=== PATIENT | male | born 2000 | race Two or more races ===

== ENCOUNTER 2020-06-27 23:30 | Observation (INO) | payer BC, OTHER ==
[2020-06-28 00:13] LABS: CHLORIDE,CL 105 mmol/L (98-107); SODIUM,NA 139 mmol/L (136-145)
--- NOTE | 2020-06-28 00:18 | EDM.PDOC ---
ED HPI GENERAL MEDICAL PROBLEM - General Chief Complaint: Cardiovascular Problem Stated Complaint: "racing heart" Time Seen by Provider: 06/28/20 00:04 Source of Information: Reports: Patient History Limitations: Reports: No Limitations - History of Present Illness INITIAL COMMENTS - FREE TEXT/NARRATIVE: Patient comes to ER with complaint of racing heart/more rapid pulse that started two days ago. Has Apple Watch which told him that his heart rate remained above 100 and went up to 120 for several hours yesterday while he was sitting inactive on the couch. Mild lightheadedness and mild breathlessness accompanies episodes. Today he only feels short episodes lasting 5-10 sec. Feels like flutter in chest. Activity/talking seems to bring it on. No history of arrhythmias/similar symptoms in past. Quit smoking several weeks ago. Otherwise no lifestyle changes. Denies any significant use of ETOH. Denies much caffeine use/no drug use. No recent illnesses. No supplements. No other complaints. - Related Data Allergies Allergy/AdvReac Type Severity Reaction Status Date / Time No Known Allergies Allergy Verified 06/27/20 23:31 Home Meds: Home Meds . [No Known Home Meds] 06/27/20 [History] Past Medical History Psychiatric History: Reports: ADHD Social & Family History - Tobacco Use Smoking Status *Q: Former Smoker Used Tobacco, but Quit: Yes Month/Year Tobacco Last Used: 2019 Second Hand Smoke Exposure: No - Caffeine Use Caffeine Use: Reports: Coffee - Alcohol Use Alcohol Use History: Yes Alcohol Use Frequency: Rarely - Recreational Drug Use Recreational Drug Use: No ED ROS GENERAL - Review of Systems Review Of Systems: See Below Constitutional: Reports: No Symptoms HEENT: Reports: No Symptoms Respiratory: Reports: Shortness of Breath Cardiovascular: Reports: Palpitations GI/Abdominal: Reports: No Symptoms : Reports: No Symptoms Musculoskeletal: Reports: No Symptoms Skin: Reports: No Symptoms Neurological: Reports: No Symptoms Psychiatric: Reports: No Symptoms Hematologic/Lymphatic: Reports: No Symptoms ED EXAM, GENERAL - Physical Exam Exam: See Below Exam Limited By: No Limitations General Appearance: Alert, WD/WN, No Apparent Distress Eye Exam: Bilateral Eye: EOMI, PERRL Ears: Normal External Exam, Hearing Grossly Normal Nose: No: Nasal Deformity, Nasal Swelling, Nasal Drainage Throat/Mouth: Normal Lips, Normal Voice, No Airway Compromise Head: Atraumatic, Normocephalic Neck: Normal Inspection, Supple, Non-Tender, Full Range of Motion Respiratory/Chest: No Respiratory Distress, Lungs Clear, Normal Breath Sounds, No Accessory Muscle Use Cardiovascular: Regular Rate, Rhythm, No Murmur GI/Abdominal: Soft, Non-Tender (Male) Exam: Deferred Rectal (Males) Exam: Deferred Extremities: Normal Inspection Neurological: Alert, Oriented, CN II-XII Intact, Normal Cognition, Normal Gait, No Motor/Sensory Deficits Psychiatric: Normal Affect, Normal Mood Skin Exam: Warm, Dry, Intact, Normal Color EKG INTERPRETATION EKG Date: 06/28/20 Time: 00:12 Rhythm: NSR Rate (Beats/Min): 65 [place]: Normal P-Wave: Present QRS: Normal ST-T: Normal QT: Normal Course - Vital Signs Last Recorded V/S: Last Vital Signs Temp 36.7 C 06/27/20 23:32 Pulse 68 06/27/20 23:32 Resp 16 06/27/20 23:32 BP 130/74 06/27/20 23:32 Pulse Ox 99 06/27/20 23:32 - Orders/Labs/Meds Orders: Active Orders 24 hr Category Date Time Status EKG Documentation Completion [RC] ASDIRECTED Care 06/27/20 23:42 Active CXR [Chest 2V] [CR] Stat Exams 06/27/20 23:41 Ordered COMPREHENSIVE METABOLIC PN,CMP [CHEM] Stat Lab 06/27/20 23:50 Received DRUG SCREEN, URINE [URCHEM] Stat Lab 06/27/20 23:40 Ordered UA W/MICROSCOPIC [URIN] Stat Lab 06/27/20 23:40 Ordered EKG 12 Lead [EK] Stat Ther 06/27/20 23:41 Ordered Labs: Laboratory Tests 06/27/20 Range/Units 23:50 WBC 7.7 (4.0-10.2) K/uL RBC 4.36 (4.33-5.41) M/uL Hgb 13.4 (13.1-16.8) g/dL Hct 40.3 (39.0-49.0) % MCV 92.4 (84.0-98.0) fL MCH 30.7 (28.2-33.3) pg MCHC 33.3 (31.7-36.0) g/dL RDW 13.8 (11.2-14.1) % Plt Count 232 (150-350) K/uL Neut % (Auto) 42.0 L (45.0-80.0) % Lymph % (Auto) 44.5 (10.0-50.0) % [place] % (Auto) 10.3 (2.0-14.0) % Eos % (Auto) 3.1 (0.0-5.0) % Baso % (Auto) 0.1 (0.0-2.0) % Neut # (Auto) 3.24 (1.40-7.00) K/uL Lymph # (Auto) 3.44 (0.50-3.50) K/uL [place] # (Auto) 0.80 (0.00-1.00) K/uL Eos # (Auto) 0.24 (0.00-0.50) K/uL Baso # (Auto) 0.01 (0.00-0.20) K/uL - Re-Assessments/Exams Free Text/Narrative Re-Assessment/Exam: 06/28/20 00:34 Chest xray/EKG/CBC/Chem unremarkable. Patient feeling fine during exam. Did note two PVCs on monitor. Asked patient if he felt the butterfly sensation when those were noted and he said yes. Appears some of his complaints stem from PVCs, but that does not explain the sustained tachycardia he experienced yesterday. Plan at this time is to admit observation and continue telemetry. Will add Covid testing as it is becoming known that Covid can lead to heart arrhythmias. Only acute testing is available here. Patient will need to look at antibody testing as an outpatient as part of his continued workup for this. Departure - Departure Time of Disposition: 00:37 Disposition: Refer to Observation Condition: Good Clinical Impression: Cardiac arrhythmia, unspecified Qualifiers: Arrhythmia type: unspecified cardiac arrhythmia Qualified Code(s): I49.9 - Cardiac arrhythmia, unspecified Sepsis Event Note (ED) - Evaluation Sepsis Screening Result: No Definite Risk - Focused Exam Vital Signs: Vital Signs Temp Pulse Resp BP Pulse Ox 06/27/20 23:32 36.7 C 68 16 130/74 99 - Problem List & Annotations (1) Cardiac arrhythmia, unspecified SNOMED Code(s): 227745158 Code(s): I49.9 - CARDIAC ARRHYTHMIA, UNSPECIFIED Status: Acute Priority: High Current Visit: Yes Annotation/Comment:: Per self report patient had several hours of sustained tachycardia yesterday while resting on couch per smart watch. No identifiable trigger. Today appears to be having scattered PVCs. Admit observation and have patient on telemetry to allow closer monitoring. Covid testing requested as infection can lead to arrhythmias in some patients, however patient denies any other signs of recent illness. Qualifiers: Arrhythmia type: unspecified cardiac arrhythmia Qualified Code(s): I49.9 - Cardiac arrhythmia, unspecified - My Orders Last 24 Hours: My Active Orders 06/27/20 23:40 DRUG SCREEN, URINE [URCHEM] Stat UA W/MICROSCOPIC [URIN] Stat 06/27/20 23:41 CXR [Chest 2V] [CR] Stat EKG 12 Lead [EK] Stat 06/27/20 23:42 EKG Documentation Completion [RC] ASDIRECTED 06/27/20 23:50 COMPREHENSIVE METABOLIC PN,CMP [CHEM] Stat - Assessment/Plan Admission H&P: Please use this note as an admission H&P Last 24 Hours: My Active Orders 06/27/20 23:40 DRUG SCREEN, URINE [URCHEM] Stat UA W/MICROSCOPIC [URIN] Stat 06/27/20 23:41 CXR [Chest 2V] [CR] Stat EKG 12 Lead [EK] Stat 06/27/20 23:42 EKG Documentation Completion [RC] ASDIRECTED 06/27/20 23:50 COMPREHENSIVE METABOLIC PN,CMP [CHEM] Stat Assessment:: as above. Patient stable and suitable for observation. Plan: as above. Anticipate discharge later today if patient remains stable and no significant abnormalities are noted on telemetry.
[2020-06-28] MEDS ORDERED: Sodium Chloride 0.9% 10 ML Syringe FLUSH PRN (07:36)
[2020-06-28 09:16] LABS: BARBITURATE SCREEN,URINE NEGATIVE (NEGATIVE); BENZODIAZEPINES SCREEN,URINE NEGATIVE (NEGATIVE); EDDP,URINE SCREEN NEGATIVE (NEGATIVE); TCA SCREEN,URINE NEGATIVE (NEGATIVE); THC SCREEN,URINE 50 NG/ML NEGATIVE (NEGATIVE)
--- NOTE | 2020-06-28 11:40 | PCM.DCSUM1 ---
Discharge Summary - Hospital Course Brief History: Admitted for continued observation and telemetry after experiencing prolonged episode of tachycardia and suspected intermittent PVCs. Diagnosis: Stroke: No - Discharge Data Discharge Date: 06/28/20 Discharge Disposition: Home, Self-Care 01 Condition: Good - Referral to Home Health Primary Care Physician: PCP None - Discharge Diagnosis/Problem(s) (1) Cardiac arrhythmia, unspecified SNOMED Code(s): 506590818 ICD Code: I49.9 - CARDIAC ARRHYTHMIA, UNSPECIFIED Status: Acute Priority: High Current Visit: Yes Problem Details: Per self report patient had several hours of sustained tachycardia 2 days ago while resting on couch per smart watch. No identifiable trigger. Yesterday appeared to be having scattered PVCs (several PVCs noted on ER monitor) Admitted observation on telemetry to allow closer monitoring. Covid testing requested as infection can lead to arrhythmias in some patients. Patient recalls having respiratory infection around a month ago or so. No episodes per patient since admission. Qualifiers: Arrhythmia type: unspecified cardiac arrhythmia Qualified Code(s): I49.9 - Cardiac arrhythmia, unspecified - Patient Summary/Data Hospital Course: Unremarkable stay. No further complaints of any heart ir regularities/tachycardia. A few PVCs noted while in ER. CBC/Chem/Troponin/Mg/DDimer unremarkable. Covid test pending. Drug screen performed as precaution given tachycardia complaint and was negative. Plan at this time is to discharge patient home. He does have an Apple watch that tracks heart rate and will notify him if the rate becomes accelerated again as it did two days ago. Unknown cause for patient's complaints. Did not ingest any substances that would likely trigger cardiac irregularity and does not appear to be actively ill. As noted above he wonders if he had Covid around 4-6weeks ago. Covid is becoming known for causing cardiac damage in a significant number of people which can lead to arrhythmias and must be considered within the differential. He is recommended to establish care with a primary provider. A Holter monitor/30 day monitor should be considered if his symptoms return. Precautions reviewed prior to discharge. To return to the ER if he has any acute problems/worsening. - Patient Instructions Diet: Usual Diet as Tolerated Activity: As Tolerated Driving: May Drive Today Showering/Bathing: May Shower Other/Special Instructions: Rember to write down any other episodes of fast heart rate/when they happen/how long they last. If the symptoms come back you need to follow up with a local clinic as we discussed and get set up for a heart monitor and cardiology consult. Follow up in the ER if you have sudden worseni ng problems. - Discharge Plan *PRESCRIPTION DRUG MONITORING PROGRAM REVIEWED*: Not Applicable *COPY OF PRESCRIPTION DRUG MONITORING REPORT IN PATIENT LAITH: Not Applicable Home Medications: Home Meds . [No Known Home Meds] 06/27/20 [History] Forms: ED Department Discharge Referrals: PCP,None [Primary Care Provider] - - Discharge Summary/Plan Comment DC Time >30 min.: No - Patient Data Vitals - Most Recent: Last Vital Signs Temp 36.6 C 06/28/20 07:57 Pulse 97 06/28/20 07:57 Resp 12 06/28/20 07:57 BP 106/55 L 06/28/20 07:57 Pulse Ox 97 06/28/20 07:57 Weight - Most Recent: 82.157 kg I&O - Last 24 hours: Intake & Output 06/27/20 06/28/20 06/28/20 22:59 06:59 14:59 Intake Total 0 Balance 0 Lab Results - Last 24 hrs: Laboratory Results - last 24 hr 06/27/20 06/27/20 06/27/20 Range/Units 23:50 23:50 23:50 WBC 7.7 (4.0-10.2) K/uL RBC 4.36 (4.33-5.41) M/uL Hgb 13.4 (13.1-16.8) g/dL Hct 40.3 (39.0-49.0) % MCV 92.4 (84.0-98.0) fL MCH 30.7 (28.2-33.3) pg MCHC 33.3 (31.7-36.0) g/dL RDW 13.8 (11.2-14.1) % Plt Count 232 (150-350) K/uL Neut % (Auto) 42.0 L (45.0-80.0) % Lymph % (Auto) 44.5 (10.0-50.0) % [place] % (Auto) 10.3 (2.0-14.0) % Eos % (Auto) 3.1 (0.0-5.0) % Baso % (Auto) 0.1 (0.0-2.0) % Neut # (Auto) 3.24 (1.40-7.00) K/uL Lymph # (Auto) 3.44 (0.50-3.50) K/uL [place] # (Auto) 0.80 (0.00-1.00) K/uL Eos # (Auto) 0.24 (0.00-0.50) K/uL Baso # (Auto) 0.01 (0.00-0.20) K/uL D-Dimer, Quantitative < 100 (0-400) ng/mL Sodium 139 (136-145) mmol/L Potassium 3.7 (3.5-5.1) mmol/L Chloride 105 (98-107) mmol/L Carbon Dioxide 27.6 (21.0-32.0) mmol/L BUN 15 (7-18) mg/dL Creatinine 0.82 (0.51-1.17) mg/dL Est Cr Clr Drug Dosing TNP Estimated GFR (MDRD) > 60 mL/min Glucose 132 H (74-106) mg/dL Calcium 8.5 (8.5-10.1) mg/dL Magnesium (1.8-2.4) mg/dL Total Bilirubin 0.5 (0.2-1.0) mg/dL AST 21 (15-37) U/L ALT 31 (12-78) U/L Alkaline Phosphatase 66 (46-116) IU/L Troponin I (0.000-0.056) ng/mL Total Protein 7.2 (6.4-8.2) g/dL Albumin 4.0 (3.4-5.0) g/dL Specimen Type Urine Color Urine Appearance Urine pH (5.0-9.0) Ur Specific [place] (1.005-1.030) Urine Protein (NEGATIVE) mg/dL Urine Glucose (UA) (NEGATIVE) mg/dL Urine Ketones (NEGATIVE) mg/dL Urine Occult Blood (NEGATIVE) Urine Nitrite (NEGATIVE) Urine Bilirubin (NEGATIVE) Urine Urobilinogen (0.2-1.0) E.U./dL Ur Leukocyte Esterase (NEGATIVE) Urine RBC /HPF Urine WBC /HPF Ur Epithelial Cells /LPF Urine Mucus (NEGATIVE) /LPF Urine Opiates Screen (NEGATIVE) Ur Buprenorphine Scrn (NEGATIVE) Ur Oxycodone Screen (NEGATIVE) Ur EDDP (Meth Metab) (NEGATIVE) Ur Barbiturates Screen (NEGATIVE) Ur Tricyclics Screen (NEGATIVE) Ur Amphetamine Screen (NEGATIVE) U Methamphetamines Scrn (NEGATIVE) Urine MDMA Screen (NEGATIVE) U Benzodiazepines Scrn (NEGATIVE) U Cocaine Metab Screen (NEGATIVE) U Marijuana (THC) Screen (NEGATIVE) 06/27/20 06/28/20 06/28/20 Range/Units 23:50 07:55 08:30 WBC (4.0-10.2) K/uL RBC (4.33-5.41) M/uL Hgb (13.1-16.8) g/dL Hct (39.0-49.0) % MCV (84.0-98.0) fL MCH (28.2-33.3) pg MCHC (31.7-36.0) g/dL RDW (11.2-14.1) % Plt Count (150-350) K/uL Neut % (Auto) (45.0-80.0) % Lymph % (Auto) (10.0-50.0) % [place] % (Auto) (2.0-14.0) % Eos % (Auto) (0.0-5.0) % Baso % (Auto) (0.0-2.0) % Neut # (Auto) (1.40-7.00) K/uL Lymph # (Auto) (0.50-3.50) K/uL [place] # (Auto) (0.00-1.00) K/uL Eos # (Auto) (0.00-0.50) K/uL Baso # (Auto) (0.00-0.20) K/uL D-Dimer, Quantitative (0-400) ng/mL Sodium (136-145) mmol/L Potassium (3.5-5.1) mmol/L Chloride (98-107) mmol/L Carbon Dioxide (21.0-32.0) mmol/L BUN (7-18) mg/dL Creatinine (0.51-1.17) mg/dL Est Cr Clr Drug Dosing Estimated GFR (MDRD) mL/min Glucose (74-106) mg/dL Calcium (8.5-10.1) mg/dL Magnesium (1.8-2.4) mg/dL Total Bilirubin (0.2-1.0) mg/dL AST (15-37) U/L ALT (12-78) U/L Alkaline Phosphatase (46-116) IU/L Troponin I 0.000 (0.000-0.056) ng/mL Total Protein (6.4-8.2) g/dL Albumin (3.4-5.0) g/dL Specimen Type Urincc Urine Color Yellow Urine Appearance Clear Urine pH 6.0 (5.0-9.0) Ur Specific [place] >= 1.030 (1.005-1.030) Urine Protein 30 H (NEGATIVE) mg/dL Urine Glucose (UA) Negative (NEGATIVE) mg/dL Urine Ketones Negative (NEGATIVE) mg/dL Urine Occult Blood Negative (NEGATIVE) Urine Nitrite Negative (NEGATIVE) Urine Bilirubin Negative (NEGATIVE) Urine Urobilinogen 0.2 (0.2-1.0) E.U./dL Ur Leukocyte Esterase Negative (NEGATIVE) Urine RBC Not seen /HPF Urine WBC Not seen /HPF Ur Epithelial Cells Not seen /LPF Urine Mucus Moderate H (NEGATIVE) /LPF Urine Opiates Screen Negative (NEGATIVE) Ur Buprenorphine Scrn Negative (NEGATIVE) Ur Oxycodone Screen Negative (NEGATIVE) Ur EDDP (Meth Metab) Negative (NEGATIVE) Ur Barbiturates Screen Negative (NEGATIVE) Ur Tricyclics Screen Negative (NEGATIVE) Ur Amphetamine Screen Negative (NEGATIVE) U Methamphetamines Scrn Negative (NEGATIVE) Urine MDMA Screen Negative (NEGATIVE) U Benzodiazepines Scrn Negative (NEGATIVE) U Cocaine Metab Screen Negative (NEGATIVE) U Marijuana (THC) Screen Negative (NEGATIVE) 06/28/20 06/28/20 Range/Units 08:40 08:40 WBC (4.0-10.2) K/uL RBC (4.33-5.41) M/uL Hgb (13.1-16.8) g/dL Hct (39.0-49.0) % MCV (84.0-98.0) fL MCH (28.2-33.3) pg MCHC (31.7-36.0) g/dL RDW (11.2-14.1) % Plt Count (150-350) K/uL Neut % (Auto) (45.0-80.0) % Lymph % (Auto) (10.0-50.0) % [place] % (Auto) (2.0-14.0) % Eos % (Auto) (0.0-5.0) % Baso % (Auto) (0.0-2.0) % Neut # (Auto) (1.40-7.00) K/uL Lymph # (Auto) (0.50-3.50) K/uL [place] # (Auto) (0.00-1.00) K/uL Eos # (Auto) (0.00-0.50) K/uL Baso # (Auto) (0.00-0.20) K/uL D-Dimer, Quantitative (0-400) ng/mL Sodium (136-145) mmol/L Potassium (3.5-5.1) mmol/L Chloride (98-107) mmol/L Carbon Dioxide (21.0-32.0) mmol/L BUN (7-18) mg/dL Creatinine (0.51-1.17) mg/dL Est Cr Clr Drug Dosing Estimated GFR (MDRD) mL/min Glucose (74-106) mg/dL Calcium (8.5-10.1) mg/dL Magnesium 2.2 (1.8-2.4) mg/dL Total Bilirubin (0.2-1.0) mg/dL AST (15-37) U/L ALT (12-78) U/L Alkaline Phosphatase (46-116) IU/L Troponin I 0.001 (0.000-0.056) ng/mL Total Protein (6.4-8.2) g/dL Albumin (3.4-5.0) g/dL Specimen Type Urine Color Urine Appearance Urine pH (5.0-9.0) Ur Specific [place] (1.005-1.030) Urine Protein (NEGATIVE) mg/dL Urine Glucose (UA) (NEGATIVE) mg/dL Urine Ketones (NEGATIVE) mg/dL Urine Occult Blood (NEGATIVE) Urine Nitrite (NEGATIVE) Urine Bilirubin (NEGATIVE) Urine Urobilinogen (0.2-1.0) E.U./dL Ur Leukocyte Esterase (NEGATIVE) Urine RBC /HPF Urine WBC /HPF Ur Epithelial Cells /LPF Urine Mucus (NEGATIVE) /LPF Urine Opiates Screen (NEGATIVE) Ur Buprenorphine Scrn (NEGATIVE) Ur Oxycodone Screen (NEGATIVE) Ur EDDP (Meth Metab) (NEGATIVE) Ur Barbiturates Screen (NEGATIVE) Ur Tricyclics Screen (NEGATIVE) Ur Amphetamine Screen (NEGATIVE) U Methamphetamines Scrn (NEGATIVE) Urine MDMA Screen (NEGATIVE) U Benzodiazepines Scrn (NEGATIVE) U Cocaine Metab Screen (NEGATIVE) U Marijuana (THC) Screen (NEGATIVE) Med Orders - Current: Current Medications Sodium Chloride (Saline Flush) 10 ml FLUSH ASDIRECTED PRN PRN Reason: Keep Vein Open EKG INTERPRETATION EKG Date: 06/28/20 Time: 07:48 Rhythm: Other (Sinus bradycardia) Rate (Beats/Min): 59 [place]: Normal P-Wave: Present QRS: Normal ST-T: Normal QT: Normal Comparison: No Change
== END 2020-06-28 12:02 | disposition home or self-care (01) ==
LOC: LL.ED 23:30 → UNDOADMOB 06-28 00:32 → LL.MS 06-28 00:32
PROVIDERS: ADMIT Emergency Medicine; ATTEND Emergency Medicine
DX: I49.9 Cardiac arrhythmia, unspecified (principal); Z87.891 Personal history of nicotine dependence
CPT/HCPCS: 36415; 71046; 80053; 80305-QW; 81001; 83735; 84484; 85025; 85379; 93005; 99285-25; G0378